=== PATIENT | female | born 1995 | race Caucasian/White ===

== ENCOUNTER 2018-03-10 03:21 | Emergency (ER) | payer BC ==
[~2018-03-10] VITALS: Ht 162.6 cm; Wt 49.9 kg
--- NOTE | 2018-03-10 03:44 | NUR ---
DR JAYANT CERVANTES MD AT BEDSIDE FOR MSE.
[2018-03-10] MEDS ORDERED: SULFAMETH/TRIMETH 800/160 MG TABLET ONE (03:52)
[2018-03-10] MEDS ORDERED: SULFAMETH/TRIMETH 800/160 MG TABLET PO ONE (04:00)
--- NOTE | 2018-03-10 04:00 | NUR ---
Patient discharged to home in stable conditon. Written and verbal after care instructions given. Patient verbalizes understanding of instructions. Pt ambulated from ER w/ steady gait, accompanied by . No distress noted. Pt took all personal belongings.
[2018-03-10 04:01] VITALS: BP 121/88
== END 2018-03-10 04:02 | disposition home or self-care (01) ==
LOC: ER 03:26
DX: B95.8 Unspecified staphylococcus as the cause of diseases classified elsewhere (principal); K21.9 Gastro-esophageal reflux disease without esophagitis; Z88.1 Allergy status to other antibiotic agents
CPT/HCPCS: 99283; A4663